=== PATIENT | male | born 1940 | race Caucasian/White ===

== ENCOUNTER → 2024-10-06 11:17 | Outpatient (CLI) | payer MEDICARE, SELFPAY ==
--- NOTE | 2024-10-06 11:23 | DI.RAD.S_ITS ---
PROCEDURE: XR THORACIC SPINE 2V INDICATIONS: mid back pain TECHNIQUE: 3 views of the thoracic spine were acquired. COMPARISON: None. FINDINGS: Thoracic spine curvature and alignment: Normal. Bones: There are no osseous abnormalities. Disc spaces: Moderate degenerative disc disease is seen at each level. Intervertebral foramen: Grossly normal in width. Soft tissues: Moderate calcification seen in the pleura bilaterally with probable interstitial disease in both lungs. Findings suggestive of asbestos exposure and asbestosis IMPRESSION: Moderate degeneration. Bilateral pleural calcification compatible with asbestos exposure. Also interstitial disease suggesting pamela asbestosis. Consider chest CT for better evaluation if previously unknown Dictated by: Torito Santiago M.D. on 10/06/2024 at 13:24 Approved by: Torito Santiago M.D. on 10/06/2024 at 13:26
--- NOTE | 2024-10-06 11:23 | DI.RAD.S_ITS ---
PROCEDURE: XR LUMBAR SPINE 2-3V INDICATIONS: low back pain TECHNIQUE: 3 views of the lumbar spine were acquired. COMPARISON: None. FINDINGS: Lumbar spine curvature and alignment: Mild dextroscoliosis appreciated. Bones: There are no osseous abnormalities. Disc spaces: Severe L2-3, L3-4 mild L4-5 and L5-S1 degenerative disc disease noted. There is moderate degenerative facet disease L3-4 through L5-S1. Soft tissues: No soft tissue swelling, calcification or mass. IMPRESSION: Degeneration. Dictated by: Torito Santiago M.D. on 10/06/2024 at 13:29 Approved by: Torito Santiago M.D. on 10/06/2024 at 13:30
[2024-10-06 11:44] LABS: Appearance Urine UA CLEAR; Bilirubin Urine UA NEGATIVE (NEGATIVE); Color Urine UA YELLOW; Glucose Urine UA NEGATIVE (Negative); Ketones Urine UA NEGATIVE (NEGATIVE); Leukocyte Esterase Urine UA NEGATIVE (NEGATIVE); Nitrite Urine UA NEGATIVE (Negative); Occult Blood Urine UA NEGATIVE (Negative); Protein Urine UA NEGATIVE (Negative); pH Urine UA 7.5 (4.5-8.0)
[2024-10-06 11:54] LABS: Bacteria Urine Occasional (0-1); Culture Indicated Urine Cult Not Indicated; RBC Urine 0-1/HPF (0-5/HPF); Squamous Epithelial Cell Urine 0-1 /HPF (0-5/HPF); Urine Volume 10mL (spun); WBC Urine 0-1/HPF (0-5/HPF)
== END ==
PROVIDERS: PCP Family Medicine; Referring Provider Family Medicine; Visit Provider Family Medicine
DX: J84.9 Interstitial pulmonary disease, unspecified (principal); J94.8 Other specified pleural conditions; M51.34 Other intervertebral disc degeneration, thoracic region; M47.816 Spondylosis without myelopathy or radiculopathy, lumbar region; M47.817 Spondylosis without myelopathy or radiculopathy, lumbosacral region; M51.360 Other intervertebral disc degeneration, lumbar region with discogenic back pain only; M51.370 Other intervertebral disc degeneration, lumbosacral region with discogenic back pain only; M54.9 Dorsalgia, unspecified; R30.0 Dysuria
CPT/HCPCS: 72070; 72100; 81001

== ENCOUNTER → 2024-12-25 11:12 | Outpatient (CLI) | payer MEDICARE, SELFPAY ==
[2024-12-25 12:22] LABS: Blood Urea Nitrogen 10 mg/dL (9-20); Carbon Dioxide 26 mmol/L (22-32); Chloride 101 mmol/L (98-107); Estimated Glomerular Filt Rate > 60 mL/min (>60); Glucose 106 mg/dL (80-110); HEMOLYSIS < 15 (0-50); Potassium 4.1 mmol/L (3.4-5.1); Sodium 134 mmol/L (137-145)
== END ==
PROVIDERS: PCP Family Medicine; Referring Provider Nurse Practitioner; Visit Provider Family Medicine
DX: I25.10 Atherosclerotic heart disease of native coronary artery without angina pectoris (principal); R06.02 Shortness of breath
CPT/HCPCS: 36415; 80048

== ENCOUNTER → 2024-12-28 11:13 | Outpatient (CLI) | payer MEDICARE, SELFPAY ==
--- NOTE | 2024-12-28 11:18 | DI.RAD.S_ITS ---
PROCEDURE: XR CHEST 2V INDICATIONS: SOB TECHNIQUE: 2 views of the chest were acquired. COMPARISON: [facility], CR, XR THORACIC SPINE 2V, 10/06/2024, 11:34. FINDINGS: Surgical changes and devices: None. Lungs and pleura: Moderate right and small left pleural effusions. Bilateral pleural calcifications. Bilateral increased interstitial markings, may represent interstitial lung disease versus pulmonary edema. Mediastinum: Mediastinal contours are normal. Heart size is normal. Bones and chest wall: No suspicious bony abnormalities. Soft tissues appear unremarkable. IMPRESSION: Moderate right and small left pleural effusions. Bilateral pleural calcifications. Increased interstitial markings bilaterally may represent interstitial lung disease versus pulmonary edema. Consider chest CT for further evaluation as clinically indicated. Dictated by: Joe Donohue M.D. on 12/28/2024 at 15:24 Approved by: Joe Donohue M.D. on 12/28/2024 at 15:26
== END ==
PROVIDERS: PCP Family Medicine; Referring Provider Family Medicine; Visit Provider Nurse Practitioner
DX: J90 Pleural effusion, not elsewhere classified (principal); R06.02 Shortness of breath
CPT/HCPCS: 71046